=== PATIENT | female | born 1960 | race Caucasian/White ===

== ENCOUNTER 2017-06-15 15:48 | Emergency (ER) | payer SELFPAY ==
[~2017-06-15] VITALS: Ht 177.8 cm; Wt 90.7 kg
[2017-06-15 16:00] VITALS: BP 137/63
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
[2017-06-15] MEDS ORDERED: IBUPROFEN 800 MG TABLET. PO ONE ×2 (16:34→16:45)
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
== END 2017-06-15 17:07 | disposition home or self-care (01) ==
LOC: ER 15:48
DX: S89.92XA Unspecified injury of left lower leg, initial encounter (principal); M25.462 Effusion, left knee; G62.9 Polyneuropathy, unspecified; W22.8XXA Striking against or struck by other objects, initial encounter; Y93.01 Activity, walking, marching and hiking; Y92.481 Parking lot as the place of occurrence of the external cause; Y99.8 Other external cause status
CPT/HCPCS: 29505; 73562; 99284-25

== ENCOUNTER → 2017-06-24 | Outpatient (CLI) | payer OTHER ==
[2017-06-15 16:00] VITALS: BP 137/63
--- NOTE | 2017-06-24 16:53 | RAD ---
Indication left knee pain. Injury. Pain. Axial images through the left knee were obtained. Images were reformatted in the coronal and sagittal planes. Note is made of the plain film examination 9 days earlier. A significant soft tissue injury is not seen. There is a small knee joint effusion. The distal femur and patella appear unremarkable. There is a comminuted fracture involving the lateral tibial plateau. There are vertical fracture fragments extending to the articular surface. There is a depressed bone fragment into the proximal tibia. The bone fragment is depressed approximately 5 mm. The fracture extends to the lateral intercondylar notch. The medial tibial plateau appears unremarkable. The fibular head and neck appear unremarkable. IMPRESSION: Comminuted fracture of the lateral tibial plateau with associated depressed fracture fragment as outlined above PQRS Compliance Statement: One or more of the following individualized dose reduction techniques were utilized for this examination: 1. Automated exposure control 2. Adjustment of the mA and/or kV according to patient size 3. Use of iterative reconstruction technique
== END | disposition home or self-care (01) ==
LOC: CT 15:29
PROVIDERS: ATTEND Orthopaedic Surgery
DX: S82.142A Displaced bicondylar fracture of left tibia, initial encounter for closed fracture (principal); X58.XXXA Exposure to other specified factors, initial encounter; Y93.89 Activity, other specified; Y92.89 Other specified places as the place of occurrence of the external cause; Y99.8 Other external cause status
CPT/HCPCS: 73700

== ENCOUNTER → 2017-11-14 | Outpatient (CLI) | payer OTHER | END | disposition home or self-care (01) | LOC: KCIC MRI 14:12 | DX: M94.262 Chondromalacia, left knee (principal); M25.462 Effusion, left knee | CPT/HCPCS: 73721 ==